=== PATIENT | female | born 1990 | race African-American/Black ===

== ENCOUNTER 2020-10-15 15:21 | Emergency (ER) | payer OTHER ==
[~2020-10-15] VITALS: Ht 165.1 cm; Wt 93.4 kg
[~2020-10-15 15:21] MED LIST: APAP500 PO; KEFLEX500 MG PO; PRENATAL
[2020-10-15 16:38] LABS: HEMATOCRIT 29.6 % (37.0-47.0); HEMOGLOBIN 9.6 gm/dL (12.0-15.0); MCH 24.3 pg (26.0-34.0); MCHC 32.4 g/dL (28.0-37.0); MCV 74.9 fL (80.0-100.0); RBC 3.96 mil/uL (4.20-5.00); RDW 18.1 % (10.5-14.5); WBC 7.8 thou/uL (4.0-11.0)
[2020-10-15 16:49] LABS: CALCIUM 8.9 mg/dL (8.5-10.1); CREATININE 0.8 mg/dL (0.6-1.0); POTASSIUM 3.5 mmol/L (3.5-5.1)
[2020-10-15] MEDS ORDERED: NAPROSYN500 MG PO (17:50)
[2020-10-15] MEDS ORDERED: CLEOCIN HCL150 M1 PO (17:50)
[2020-10-15 18:19] VITALS: BP 128/62
== END 2020-10-15 18:15 | disposition home or self-care (01) ==
LOC: ER 15:21
PROVIDERS: Emergency Medicine
DX: K04.7 Periapical abscess without sinus (principal); Z79.899 Other long term (current) drug therapy